=== PATIENT | male | born 1995 | race Caucasian/White ===

== ENCOUNTER 2017-02-13 15:03 | Emergency (ER) | payer OTHER ==
[~2017-02-13] VITALS: Ht 185.4 cm; Wt 104.3 kg
[~2017-02-13 15:03] MED LIST: ZOFRAN ODT8 MG PO
[2017-02-13 15:08] VITALS: BP 166/97
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
== END 2017-02-13 16:19 ==
LOC: ERH 15:03
DX: S93.401A Sprain of unspecified ligament of right ankle, initial encounter (principal); Y04.8XXA Assault by other bodily force, initial encounter; Y92.239 Unspecified place in hospital as the place of occurrence of the external cause; Y93.9 Activity, unspecified
CPT/HCPCS: 73610-RT